=== PATIENT | female | born 1985 | race Two or more races ===

== ENCOUNTER → 2020-02-07 | Outpatient (CLI) | payer OTHER | END | disposition home or self-care (01) | LOC: PRENATAL 10:00 | PROVIDERS: ATTEND Obstetrics & Gynecology Maternal & Fetal Medicine | DX: O35.0XX1 Maternal care for (suspected) central nervous system malformation in fetus, fetus 1 (principal); O35.3XX1 Maternal care for (suspected) damage to fetus from viral disease in mother, fetus 1; O98.512 Other viral diseases complicating pregnancy, second trimester; Z36.89 Encounter for other specified antenatal screening; O34.12 Maternal care for benign tumor of corpus uteri, second trimester; Z3A.20 20 weeks gestation of pregnancy ==

== ENCOUNTER 2020-06-10 13:56 | Inpatient (IN) | payer OTHER ==
[~2020-06-10] VITALS: Ht 147.3 cm; Wt 2.7 kg
[2020-06-10] MEDS ORDERED: PRENATAL TABLE1 EAC1 PO (14:43)
[2020-06-13] MEDS ORDERED: OXYC1TAB9 PO (12:49)
[2020-06-13] MEDS ORDERED: IBUPROFEN400 MG PO (12:49)
[2020-06-13] MEDS ORDERED: DOCUSATE SODIU100 MG PO (12:50)
== END 2020-06-13 12:58 | disposition home or self-care (01) | DRG 788 ==
LOC: SURG-SUITE 13:56 → O/R 13:56 → LDR 13:56 → O/R 16:31 → SURG-SUITE 17:37
PROVIDERS: ADMIT Obstetrics & Gynecology; ATTEND Obstetrics & Gynecology
PROC: 4A1HXFZ Monitoring of Products of Conception, Cardiac Rhythm, External Approach (ICD-10-PCS; 2020-06-10)
PROC: 10D00Z1 Extraction of Products of Conception, Low, Open Approach (ICD-10-PCS; principal; 2020-06-10 14:15)
DX: O32.1XX0 Maternal care for breech presentation, not applicable or unspecified (principal); Z3A.38 38 weeks gestation of pregnancy; Z37.0 Single live birth; Z20.828 Contact with and (suspected) exposure to other viral communicable diseases